=== PATIENT | female | born 1995 | race Caucasian/White ===

== ENCOUNTER 2024-10-29 07:49 | Emergency (ER) | payer MEDICAID, SELFPAY ==
[2024-10-29 07:50] VITALS: BMI 29.9
[2024-10-29 08:02] VITALS: BP 125/82; PULSE 96; RESP 18; TEMP 37.1; O2SAT 100; BMI 30.1
--- NOTE | 2024-10-29 08:10 | XR_ITS ---
Examination: Pelvic ultrasound, transabdominal, complete Technique: Transabdominal ultrasound of the pelvis performed using grayscale imaging Date and time of exam: October 29, 2024 0820 hours INDICATIONS: Pelvic pain beginning 4 weeks ago FINDINGS: Uterus 10.7 cm endometrial stripe 0.7 cm No uterine mass or intrauterine gestation Right ovary 4.3 cm arterial flow Left ovary 7.3 cm arterial flow, 5.4 x 3.7 x 5.8 cm left adnexal primarily solid mass IMPRESSION: Left ovarian solid mass 5.4 x 3.7 x 5.8 cm, differential would include endometrioma, solid left ovarian tumor, less likely ovarian abscess,, ectopic in the appropriate clinical setting, clinical correlation advised, and follow-up accordingly
--- NOTE | 2024-10-29 08:11 | PD.EDABDPN ---
ED Abdominal Pain RME/HPI General Chief Complaint: Abdominal Pain Stated complaint: LLQ ABD PAIN X3 WEEKS; HX OVARIAN CYSTS Time seen by provider: 10/29/24 07:52 Arrival date/time: 10/29/24 07:49 29-year-old female with no known medical history presents to the emergency room with a chief complaint of left lower quadrant abdominal pain x 3 weeks Source: patient Mode of arrival: ambulatory Limitations: no limitations Related Data Home Medications ?Medication ?Instructions ?Recorded ?Confirmed omeprazole 40 mg capsule,delayed 40 mg PO QDAY 03/11/20 03/25/20 release vits no.124-ferrous fum 1 tab PO QDAY 03/11/20 03/25/20 27 mg iron-folic acid 800 mcg tablet ( Vitamin) sertraline 25 mg tablet (Zoloft) 25 mg PO QDAY 03/11/20 03/25/20 Previous Rx's ?Medication ?Instructions ?Recorded hydrocodone 5 mg-acetaminophen 325 1 tab PO BID PRN pain #20 tabs 04/07/20 mg tablet (Milfay) ibuprofen 600 mg tablet 600 mg PO Q8H PRN pain #30 tabs 04/07/20 ondansetron HCl 4 mg tablet 4 mg PO Q6H PRN nausea and 04/11/20 (Zofran) vomiting #30 tabs acetaminophen 500 mg capsule 1,000 mg (2 x 500 mg) PO QID PRN 09/18/20 fever or pain #30 caps azithromycin 250 mg tablet See Rx Instructions PO .COMPLEX #6 09/18/20 tabs Allergies Allergy/AdvReac Type Severity Reaction Status Date / Time meperidine Allergy Severe RASH Verified 10/29/24 07:53 Review of Systems Review of Systems Systems Reviewed: All systems reviewed, normal except as documented Constitutional Constitutional: Reports system reviewed and no additional complaints, except as documented, Denies fatigue, Denies fever(s), Denies headache(s) and Denies weakness Eyes Eyes: Reports system reviewed and no additional complaints, except as documented, Denies blurry vision and Denies change in vision ENT Ears, Nose, Mouth, and Throat: Reports system reviewed and no additional complaints, except as documented, Denies otalgia, Denies headache(s), Denies nasal congestion, Denies throat swelling and Denies vertigo Cardiovascular Cardiovascular: Reports system reviewed and no additional complaints, except as documented, Denies chest pain, Denies dyspnea and Denies dyspnea on exertion Respiratory Respiratory: Reports system reviewed and no additional complaints, except as documented, Denies chest congestion, Denies cough, Denies dyspnea, Denies dyspnea on exertion and Denies wheezing Gastrointestinal Gastrointestinal: Reports system reviewed and no additional complaints, except as documented, Reports abdominal pain, Reports cramping, Denies nausea and Denies vomiting Genitourinary Genitourinary: Reports system reviewed and no additional complaints, except as documented Musculoskeletal Musculoskeletal: Reports system reviewed and no additional complaints, except as documented and Denies back pain Integumentary/Breasts Skin/Breast: Reports system reviewed and no additional complaints, except as documented and Denies wounds Neurologic Neurologic: Reports system reviewed and no additional complaints, except as documented, Denies confusion, Denies headache(s), Denies lack of coordination, Denies vertigo and Denies weakness Psychiatric Psychiatric: Reports system reviewed and no additional complaints, except as documented, Denies anxiety, Denies confusion, Denies depression, Denies paranoia, Denies suicidal ideation and Denies tactile hallucinations Endocrine Endocrine: Reports system reviewed and no additional complaints, except as documented and Denies fatigue Hematologic/Lymphatic Hematologic/Lymphatic: Reports system reviewed and no additional complaints, except as documented and Denies lymphadenopathy Allergic/Immunologic Allergic/Immunologic: Reports system reviewed and no additional complaints, except as documented, Denies throat swelling, Denies urticaria and Denies wheezing Past Medical History Past Medical History NEUROLOGIC: Negative Neurological Disorders or Seizures CARDIAC: Negative Cardiac Disorders or Congestive Heart Failure RESPIRATORY: Negative Chronic Obstructive Pulmonary Disease (COPD) or Asthma GASTROINTESTINAL: Positive Gastrointestinal Disorders and Gastroesophageal Reflux Disease; Negative Hepatitis GENITOURINARY: Negative Genitourinary Disorders or Renal Disease REPRODUCTIVE: Negative Endometriosis, Genital Herpes, Gonorrhea, Pelvic Inflammatory Disease, Previous Pregnancies, Syphilis or Uterine Prolapse MUSCULOSKELETAL: Negative Musculoskeletal Disorders ENDOCRINE: Negative Endocrine Disorders, Diabetes Mellitus Type 1 or Diabetes Mellitus Type 2 HEMATOLOGIC: Negative Blood Disorders or Sickle Cell Disease PSYCHO/SOCIAL: Positive Depression and Anxiety OTHER HISTORY: Negative Hospitalization, Autoimmune Disease, Down Syndrome, Developmental Delay, Shingles, Falls, Blood Transfusions, Blood Transfusion Reaction, Anesthesia Reactions, MRSA, VRSA, Vancomycin-Resistant Enterococci, Human Immunodeficiency Virus (HIV), Chicken Pox, Measles, Mumps, Rubella (Maltese Measles), Pertussis, Clostridium Difficile or Cancer Family History FAMILY HISTORY: Positive Family Psychiatric Problems, Family Respiratory Disorders, Family Cardiac Disorders, Family Cancer and Family Surgery; Negative Family Gastrointestinal Problems or Family Anesthesia Reaction Surgical History SURGICAL: Positive Abdominal Surgery and Section (ovarian cyst removal) Social History SMOKING STATUS: Never smoker SUBSTANCE USE: does not use ED Exam General Limitations: Present no limitations General appearance: Present alert and in no apparent distress Head Head exam: Present atraumatic Eye Eye exam: Present normal appearance, PERRL and EOMI ENT ENT exam: Present normal exam, normal oropharynx and mucous membranes moist Neck Neck exam: Present normal inspection, full ROM and trachea midline Chest Chest inspection: Present normal inspection and symmetric chest wall rise Respiratory Respiratory exam: Present normal lung sounds bilaterally Cardiovascular Cardiovascular exam: Present regular rate, normal rhythm and normal heart sounds Abdominal Exam Abdominal exam: Present soft, tenderness and normal bowel sounds; Absent Nolan's sign or tenderness at McBurney's Point Abdominal tenderness: Present LLQ, suprapubic and moderate; Absent RUQ or RLQ Extremities Exam Extremities exam: Present normal inspection and full ROM Back Exam Back exam: Present normal inspection and full ROM Neurological Exam Neurological exam: Present alert, oriented X3 and CN II-XII intact Psychiatric Psychiatric exam: Present normal affect and normal mood Skin Skin exam: Present warm, dry, intact and normal color Course Quality Measures none Orders Category Date Time Status US pelvic complete Stat Exams 10/29/24 08:10 Completed CBC Stat Lab 10/29/24 08:41 Completed CMP [Comprehensive Metabolic Panel] Stat Lab 10/29/24 08:41 Completed HCG,Qualitative Serum Stat Lab 10/29/24 08:41 Completed UA, C/S IF [Urinalysis, C/S if Indicated] Stat Lab 10/29/24 08:50 Completed Vital Signs Vital signs: Vital Signs Temperature 98.8 F 10/29/24 08:02 Pulse Rate 96 10/29/24 08:02 Respiratory Rate 18 10/29/24 08:02 Blood Pressure 125/82 10/29/24 08:02 Pulse Oximetry (%) 100 10/29/24 08:02 O2 saturation 100% within normal limits Abdominal Pain MDM MDM Narrative MDM Narrative:: 29-year-old female with no known medical history presents to the emergency room with a chief complaint of left lower quadrant abdominal pain x 3 weeks Patient is hemodynamically stable. She is afebrile not tachycardic not tachypneic Physical examination shows tenderness with palpation to the left lower quadrant. The patient states it is a 7 out of 10 in severity. An ultrasound of the pelvic area was completed and found a 5.4 x 3.7 x 5.8 cm solid mass in the left ovarian area. There is arterial flow in the patient's hCG was negative. The patient did not have a white count The CLINICAL STAFF ANESTHESIOLOGIST on-call Dr. Cui was consulted and the patient can be followed up as an outpatient with her CLINICAL STAFF ANESTHESIOLOGIST. The information to Dr Salas the CLINICAL STAFF ANESTHESIOLOGIST here [facility] was given so she can call and make an appointment if she cannot get an appointment with her own CLINICAL STAFF ANESTHESIOLOGIST. Patient was discharged and educated to follow-up with primary care provider in the next 24 to 48 hours and return to the emergency room for any evidence of worsening signs or symptoms Patient data External records reviewed:: [facility] previous records Clinical information provided by:: patient Social determinants that could affect healthcare access:: none Patient has the following chronic illnesses:: No chronic illness How is presenting disease/condition affected by chronic disease/condition?: no chronic disease Evaluation data The following diagnostics were reviewed and interpreted by me:: lab results and radiology exam(s) Lab and/or radiology exams considered but not ordered:: Labs and radiology exams considered and ordered Interpretation Summary: Pelvic ultrasound-FINDINGS: Uterus 10.7 cm endometrial stripe 0.7 cm No uterine mass or intrauterine gestation Right ovary 4.3 cm arterial flow Left ovary 7.3 cm arterial flow, 5.4 x 3.7 x 5.8 cm left adnexal primarily solid mass IMPRESSION: Left ovarian solid mass 5.4 x 3.7 x 5.8 cm, differential would include endometrioma, solid left ovarian tumor, less likely ovarian abscess,, ectopic in the appropriate clinical setting, clinical correlation advised, and follow-up accordingly Medications / Prescriptions Medications or Prescriptions considered but not ordered:: No medication given Medication administrations:: No medication given Consultations Consultation(s) initiated? (list below): Yes Consultation #1 (Physician, Specialty, Details): Dr. Cui CLINICAL STAFF ANESTHESIOLOGIST on-call Time: 10:30 Diagnosis Differential diagnosis abdominal pain: abdominal pain, constipation, gastroenteritis and other (Ovarian mass) Most likely diagnosis given after review of the tests above:: Ovarian mass Admission Indicated Admission indicated?: not indicated Admission Request Was there a request for admission?: No Disposition Plan Disposition Plan: Discharge Discharge Attestation Discharge Attestation: The patient and all family members were given an opportunity to ask questions and understood the discharge instructions. Discharge instructions specifically effects, indications for sooner follow up or return to the emergency department, and the expected course of current diagnosis. Patient condition: Stable Discharge Plan Plan Patient Disposition: HOME (Self Care) Discharge Disposition comment: Stable Prescriptions/Referrals Prescriptions/Med Rec: No Action omeprazole [Prilosec] 40 mg Capsule,Delayed Release(Dr/Ec) 40 mg PO QDAY sertraline [Zoloft] 25 mg Tablet 25 mg PO QDAY Vitamin 27 mg iron- 800 mcg Tablet 1 tab PO QDAY ibuprofen 600 mg tablet 600 mg PO Q8H PRN (Reason: pain) Qty: 30 0RF hydrocodone-acetaminophen [Milfay] 5-325 mg tablet 1 tab PO BID MDD 15 PRN (Reason: pain) Qty: 20 0RF ondansetron HCl [Zofran] 4 mg tablet 4 mg PO Q6H PRN (Reason: nausea and vomiting) Qty: 30 0RF azithromycin 250 mg tablet See Rx Instructions .ROUTE .COMPLEX Qty: 6 0RF Rx Instructions: take 500 mg today (day 1), then 250 mg for 4 days (days 2-5) acetaminophen 500 mg capsule 1,000 mg PO QID PRN (Reason: fever or pain) Qty: 30 0RF Referrals: [facility]Fely Tan MD [Physician] - 11/01/24 Jose Singh MD [Primary Care Provider] - In 1 week Problem List Clinical Impression: Mass, ovarian Patient/Caregiver Discharge Instructions Additional Instructions: Please follow-up with your CLINICAL STAFF ANESTHESIOLOGIST in the next 24 to 48 hours You have a large mass in your left pelvic area. You will need to see an CLINICAL STAFF ANESTHESIOLOGIST for further management and possibly removal of this mass. If you do not have an CLINICAL STAFF ANESTHESIOLOGIST please follow-up with Dr Salas. Call our office at [phone] to schedule an appointment. For any evidence of worsening signs or symptoms return to the emergency room immediately Print Language: Marshallese Stand Alone Forms: Annette Award Info., Work/School Release, Patient Portal Info Letter PA/IVORY CARVER Supervising Physician PA/IVORY CARVER Supervising Physician: Dr. Brewster
[2024-10-29 08:51] LABS: Basophils % (Auto) 1 % (0-2.5); Eosinophils # (Auto) 0.1 Thou/mm3 (0.0-0.5); Eosinophils % (Auto) 2 % (0-10); Hematocrit 38.5 % (36.0-46.0); Hemoglobin 14.2 g/dL (12.0-16.0); Immature Granulocytes % (Auto) 1 % (0-0); Immature Granulocytes Auto 0.04 Thou/mm3 (0.00-0.00); Lymphocytes # (Auto) 1.8 Thou/mm3 (1.0-4.8); Lymphocytes % (Auto) 29 % (10-50); Mean Corpuscular HGB Conc 36.9 g/dl (31.0-37.0); Mean Corpuscular Hemoglobin 30.3 pg (25.0-35.0); Mean Corpuscular Volume 82 fL (80-100); Monocytes # (Auto) 0.4 Thou/mm3 (0.0-0.8); Monocytes % (Auto) 6 % (0-12); Neutrophils % (Auto) 63 % (37-80); Nucleated Red Blood Cell % 0 /100 WBC (0); Platelet Count 236 Thou/mm3 (140-440); RDW Standard Deviation 37.2 fL (36.4-46.3); Red Blood Count 4.68 Miln/mm3 (4.00-5.20); White Blood Count 6.4 Thou/mm3 (3.6-11.0)
[2024-10-29 08:56] LABS: Collection Type, Urine Clean Catch
[2024-10-29 09:11] LABS: Alanine Aminotransferase 15 U/L (10-49); Albumin, Serum 4.5 gm/dL (3.5-5.0); Albumin/Globulin Ratio 1.9 (1.2-2.2); Alkaline Phosphatase 62 U/L (46-116); Anion Gap 9 (7-16); Aspartate Amino Transferase 20 U/L (0-34); BUN/Creatinine Ratio 8 Ratio (12-20); Bilirubin,Total 0.5 mg/dL (0.3-1.2); Blood Urea Nitrogen 7 mg/dL (9-23); Carbon Dioxide 25.7 mMol/L (20.0-31.0); Chloride 106 mMol/L (98-107); Creatinine (Component) 0.9 mg/dL (0.6-1.3); Estimated Creatinine Clearance 95.9 mL/min (>60); Globulin 2.4 gm/dL (2.3-3.5); Glucose 97 mg/dL (74-106); Osmolality,Calculated 279 (275-295); Potassium 4.1 mMol/L (3.4-5.1); Sodium 141 mMol/L (136-145); Total Protein 6.9 gm/dL (5.7-8.2); eGFR > 60 See Note
[2024-10-29 09:16] LABS: Bacteria,Urine Rare; Bilirubin,Urine Negative (Negative); Blood,Urine Negative (Negative); Clarity,Urine Clear (Clear/Hazy); Color,Urine Yellow (Lt Yel-Yel); Culture Indicated,Urine Not Indicated; Glucose, Urine Negative (Negative); Ketones,Urine Negative (Negative); Leukocyte Esterase,Urine Negative (Negative); Nitrite,Urine Negative (Negative); Protein,Urine Trace (Neg - Trace); RBC,Urine 3 /hpf (0-3); Specific Gravity,Urine 1.025 (1.001-1.035); Squamous Epithelial Cell,Urine 19 /hpf (0-5); Urobilinogen,Urine Negative mg/dL (0.0-1.0); WBC,Urine 3 /hpf (0-5)
[2024-10-29 09:24] LABS: HCG,Qualitative Serum Negative
[2024-10-29 10:53] VITALS: BP 122/77; PULSE 78
== END 2024-10-29 10:53 | disposition home or self-care (01) ==
PROVIDERS: Nurse Practitioner Family; Emergency Provider Family Medicine; PCP Family Medicine
DX: N83.8 Other noninflammatory disorders of ovary, fallopian tube and broad ligament (principal)
CPT/HCPCS: 36415; 76856; 80053; 81001; 84703; 85025; 99284

== ENCOUNTER 2025-02-17 14:08 | Emergency (ER) | payer OTHER, SELFPAY ==
[2025-02-17 14:10] VITALS: BMI 31.6
[2025-02-17 14:21] VITALS: BP 118/82; PULSE 98; RESP 16; TEMP 37.6; O2SAT 99
--- NOTE | 2025-02-17 14:28 | XR_ITS ---
Examination: Pelvic ultrasound, transabdominal, complete Technique: Transabdominal ultrasound of the pelvis performed using grayscale imaging Date and time of exam: February 17, 2025 1446 hours INDICATIONS: Pelvic pain radiating down the left leg today FINDINGS: Uterus 9.2 cm endometrial stripe 0.57 cm No uterine mass or intrauterine gestation Right ovary 3.8 cm arterial flow 2.3 x 1.7 x 1.9 cm solid mass right ovary Left ovary 3.9 cm arterial flow small follicles IMPRESSION: 2.3 x 1.7 x 1.9 cm solid right ovarian mass,, differential would include endometrioma, ovarian tumor, recommend ELECTIVE MRI pelvis follow-up pre and postcontrast
--- NOTE | 2025-02-17 14:29 | PD.EDRME ---
Rapid Medical Screening Exam RME Arrival date/time: 02/17/25 14:08 29-year-old female presents to the emergency department for complaints of pelvic pain patient ports that she has a pelvic tumor and she is going to have surgery on the of this month in [place] Chief Complaint: Abdominal Pain Time Seen by Provider: 02/17/25 14:28 Vital signs: Vital Signs Temperature 99.6 F 02/17/25 14:21 Pulse Rate 98 02/17/25 14:21 Respiratory Rate 16 02/17/25 14:21 Blood Pressure 118/82 02/17/25 14:21 Pulse Oximetry (%) 99 02/17/25 14:21 Oxygen Delivery Method Room Air 02/17/25 14:21
[2025-02-17 14:48] LABS: Basophils # (Auto) 0.1 Thou/mm3 (0.0-0.2); Basophils % (Auto) 1 % (0-2.5); Eosinophils # (Auto) 0.1 Thou/mm3 (0.0-0.5); Eosinophils % (Auto) 1 % (0-10); Hematocrit 40.1 % (36.0-46.0); Hemoglobin 14.3 g/dL (12.0-16.0); Immature Granulocytes Auto 0.03 Thou/mm3 (0.00-0.00); Lymphocytes # (Auto) 2.4 Thou/mm3 (1.0-4.8); Lymphocytes % (Auto) 33 % (10-50); Mean Corpuscular HGB Conc 35.7 g/dl (31.0-37.0); Mean Corpuscular Hemoglobin 30.0 pg (25.0-35.0); Mean Corpuscular Volume 84 fL (80-100); Monocytes # (Auto) 0.5 Thou/mm3 (0.0-0.8); Monocytes % (Auto) 6 % (0-12); Neutrophils # (Auto) 4.3 Thou/mm3 (1.8-7.7); Neutrophils % (Auto) 59 % (37-80); Nucleated Red Blood Cell # 0.00 Thou/mm3 (0.00-0.00); Nucleated Red Blood Cell % 0 /100 WBC (0); Platelet Count 243 Thou/mm3 (140-440); RDW Standard Deviation 36.5 fL (36.4-46.3); Red Blood Count 4.76 Miln/mm3 (4.00-5.20); White Blood Count 7.4 Thou/mm3 (3.6-11.0)
--- NOTE | 2025-02-17 15:08 | XR_ITS ---
Examination: Transvaginal ultrasound of the pelvis, complete Technique: Transvaginal sonographic images pelvis performed using bautista scale imaging Exam date and time: February 17, 2025 1506 hours INDICATIONS: Pelvic pain radiating down the left leg today FINDINGS: Uterus 10.5 cm endometrial stripe 1.0 cm No uterine mass or intrauterine gestation Right ovary 3.7 cm arterial flow, 19 x 19 x 15 mm solid nonvascular mass Left ovary 3.6 cm arterial flow small follicles IMPRESSION: Right ovarian solid mass 19 x 19 x 15 mm, differential would include endometrioma, right ovarian tumor Recommend ELECTIVE MRI pelvis follow-up pre and postcontrast.
[2025-02-17 15:14] LABS: Alanine Aminotransferase 17 U/L (10-49); Albumin, Serum 5.0 gm/dL (3.5-5.0); Albumin/Globulin Ratio 2.1 (1.2-2.2); Alkaline Phosphatase 80 U/L (46-116); Anion Gap 10 (7-16); Aspartate Amino Transferase 22 U/L (0-34); BUN/Creatinine Ratio 16 Ratio (12-20); Bilirubin,Total 0.6 mg/dL (0.3-1.2); Blood Urea Nitrogen 14 mg/dL (9-23); Calcium 10.6 mg/dL (8.3-10.6); Calcium (Corrected) 10.6 mg/dL (8.5-10.1); Carbon Dioxide 26.2 mMol/L (20.0-31.0); Chloride 104 mMol/L (98-107); Creatinine (Component) 0.9 mg/dL (0.6-1.3); Estimated Creatinine Clearance 98.2 mL/min (>60); Globulin 2.4 gm/dL (2.3-3.5); Glucose 83 mg/dL (74-106); Osmolality,Calculated 278 (275-295); Potassium 4.3 mMol/L (3.4-5.1); Sodium 140 mMol/L (136-145); Total Protein 7.4 gm/dL (5.7-8.2); eGFR > 60 See Note
--- NOTE | 2025-02-17 16:05 | PD.EDABDPN ---
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 BULLOCK MAIN ED EVALUATION: 29 year old female with history of left solid ovarian mass with scheduled tumor resection for 03/04/[address] [facility] presents to the ED for evaluation of left-sided pelvic pain and left lower back pain today. Reportedly has had the abdominal pain intermittently since diagnosed with ovarian tumor ~ 1 year ago. However, noted a sharp shooting pain that begins in her lower back and radiates around to the left groin x yesterday morning. Reports she has taken Toradol at home with minimal relief. No other associated symptoms or complaints reported. Related Data Home Medications ?Medication ?Instructions ?Recorded ?Confirmed omeprazole 40 mg capsule,delayed 40 mg PO QDAY 03/11/20 03/25/20 release vits no.124-ferrous fum 1 tab PO QDAY 03/11/20 03/25/20 27 mg iron-folic acid 800 mcg tablet ( Vitamin) sertraline 25 mg tablet (Zoloft) 25 mg PO QDAY 03/11/20 03/25/20 Previous Rx's ?Medication ?Instructions ?Recorded hydrocodone 5 mg-acetaminophen 325 1 tab PO BID PRN pain #20 tabs 20 mg tablet (Dyer) ibuprofen 600 mg tablet 600 mg PO Q8H PRN pain #30 tabs 04/07/20 ondansetron HCl 4 mg tablet 4 mg PO Q6H PRN nausea and 04/11/20 (Zofran) vomiting #30 tabs acetaminophen 500 mg capsule 1,000 mg (2 x 500 mg) PO QID PRN 09/18/20 fever or pain #30 caps azithromycin 250 mg tablet See Rx Instructions PO .COMPLEX #6 09/18/20 tabs Allergies Allergy/AdvReac Type Severity Reaction Status Date / Time meperidine Allergy Severe RASH Verified 02/17/25 14:09 Review of Systems Review of Systems Systems Reviewed: All systems reviewed, normal except as documented Past Medical History Past Medical History GASTROINTESTINAL: Positive Gastrointestinal Disorders and Gastroesophageal Reflux Disease PSYCHO/SOCIAL: Positive Depression and Anxiety Family History FAMILY HISTORY: Positive Family Psychiatric Problems, Family Respiratory Disorders, Family Cardiac Disorders, Family Cancer and Family Surgery Surgical History SURGICAL: Positive Abdominal Surgery and Section (ovarian cyst removal) Social History SMOKING STATUS: Never smoker SUBSTANCE USE: does not use ED Exam General Limitations: Present no limitations General appearance: Present alert and in no apparent distress Head Head exam: Present atraumatic, normocephalic and normal inspection Eye Eye exam: Present normal appearance, PERRL and EOMI ENT ENT exam: Present normal exam, normal oropharynx and mucous membranes moist Neck Neck exam: Present normal inspection, full ROM and trachea midline Chest Chest inspection: Present normal inspection and symmetric chest wall rise Respiratory Respiratory exam: Present normal lung sounds bilaterally Cardiovascular Cardiovascular exam: Present regular rate, normal rhythm and normal heart sounds Abdominal Exam Abdominal exam: Present soft and normal bowel sounds Extremities Exam Extremities exam: Present normal inspection and full ROM Back Exam Back exam: Present normal inspection and full ROM Neurological Exam Neurological exam: Present alert, oriented X3 and CN II-XII intact Psychiatric Psychiatric exam: Present normal affect and normal mood Skin Skin exam: Present warm, dry, intact and normal color Course Quality Measures none Orders Category Date Time Status US pelvic complete Stat Exams 02/17/25 14:28 Completed US transvaginal Stat Exams 02/17/25 15:08 Completed CBC Stat Lab 02/17/25 14:40 Completed Comprehensive Metabolic Panel Stat Lab 02/17/25 14:40 Completed Vital Signs Vital signs: Vital Signs Temperature 99.6 F 02/17/25 14:21 Pulse Rate 98 02/17/25 14:21 Respiratory Rate 16 02/17/25 14:21 Blood Pressure 118/82 02/17/25 14:21 Pulse Oximetry (%) 99 02/17/25 14:21 Oxygen Delivery Method Room Air 02/17/25 14:21 Pulse ox is 99% on room air which is adequate. Abdominal Pain MDM MDM Narrative MDM Narrative:: Catalina Gustafson am scribing for and in the presence of Dr. Bullock. 29 year old female with history of left solid ovarian mass with scheduled tumor resection for 03/04/[address] [facility] presents to the ED for evaluation of left-sided pelvic pain and left lower back pain today. Labs and imaging were performed today showing a solid right ovarian mass. Patients pain today is mot likely an L2-L3 ilioinguinal nerve pain radiating to pelvis and groin. Patient reports she had an ovarian tumor resection surgery scheduled on 03/04/2025. Patient data External records reviewed:: [facility] previous records (I reviewed ED visit on 10/29/2024 ) Clinical information provided by:: patient Social determinants that could affect healthcare access:: none Patient has the following chronic illnesses:: Ovarian tumor How is presenting disease/condition affected by chronic disease/condition?: exacerbated by Evaluation data The following diagnostics were reviewed and interpreted by me:: lab results and radiology exam(s) Lab and/or radiology exams considered but not ordered:: None Interpretation Summary: Ordering Physician: Jeremy ZEPEDA),Addison RON Date of Service: 02/17/25 Procedure(s): US pelvic complete Accession Number(s): [id number] cc: Jeremy ZEPEDA),Addison RON; Marc Lara MD; NO PRIMARY/FAMILY,PHYSICIAN~ Examination: Pelvic ultrasound, transabdominal, complete Technique: Transabdominal ultrasound of the pelvis performed using grayscale imaging Date and time of exam: February 17, 2025 1446 hours INDICATIONS: Pelvic pain radiating down the left leg today FINDINGS: Uterus 9.2 cm endometrial stripe 0.57 cm No uterine mass or intrauterine gestation Right ovary 3.8 cm arterial flow 2.3 x 1.7 x 1.9 cm solid mass right ovary Left ovary 3.9 cm arterial flow small follicles IMPRESSION: 2.3 x 1.7 x 1.9 cm solid right ovarian mass,, differential would include endometrioma, ovarian tumor, recommend ELECTIVE MRI pelvis follow-up pre and postcontrast Dictated By: Marc Lara MD Signed By: <Electronically signed by Marc Lara MD in OV> 02/17/25 1533 Ordering Physician: Jeremy ZEPEDA)Addison NP Date of Service: 02/17/25 Procedure(s): US transvaginal Accession Number(s): [id number] cc: Jeremy ZEPEDA),Addison RON; Marc Lara MD; NO PRIMARY/FAMILY,PHYSICIAN~ Examination: Transvaginal ultrasound of the pelvis, complete Technique: Transvaginal sonographic images pelvis performed using bautista scale imaging Exam date and time: February 17, 2025 1506 hours INDICATIONS: Pelvic pain radiating down the left leg today FINDINGS: Uterus 10.5 cm endometrial stripe 1.0 cm No uterine mass or intrauterine gestation Right ovary 3.7 cm arterial flow, 19 x 19 x 15 mm solid nonvascular mass Left ovary 3.6 cm arterial flow small follicles IMPRESSION: Right ovarian solid mass 19 x 19 x 15 mm, differential would include endometrioma, right ovarian tumor Recommend ELECTIVE MRI pelvis follow-up pre and postcontrast. Dictated By: Marc Lara MD Signed By: <Electronically signed by Marc Lara MD in OV> 02/17/25 1538 Medications / Prescriptions Medications or Prescriptions considered but not ordered:: None Medication administrations:: None Consultations Consultation(s) initiated? (list below): No Diagnosis Differential diagnosis abdominal pain: abdominal pain, calculus of kidney and other (musculoskeletal pain ) Most likely diagnosis given after review of the tests above:: Radicular pain Admission Indicated Admission indicated?: not indicated Admission Request Was there a request for admission?: No Disposition Plan Disposition Plan: Discharge Discharge Attestation Discharge Attestation: The patient and all family members were given an opportunity to ask questions and understood the discharge instructions. Discharge instructions specifically effects, indications for sooner follow up or return to the emergency department, and the expected course of current diagnosis. Patient condition: Stable Discharge Plan Plan Patient Disposition: HOME (Self Care) Prescriptions/Referrals Prescriptions/Med Rec: No Action omeprazole [Prilosec] 40 mg Capsule,Delayed Release(Dr/Ec) 40 mg PO QDAY sertraline [Zoloft] 25 mg Tablet 25 mg PO QDAY Vitamin 27 mg iron- 800 mcg Tablet 1 tab PO QDAY ibuprofen 600 mg tablet 600 mg PO Q8H PRN (Reason: pain) Qty: 30 0RF hydrocodone-acetaminophen [Dyer] 5-325 mg tablet 1 tab PO BID MDD 15 PRN (Reason: pain) Qty: 20 0RF ondansetron HCl [Zofran] 4 mg tablet 4 mg PO Q6H PRN (Reason: nausea and vomiting) Qty: 30 0RF azithromycin 250 mg tablet See Rx Instructions .ROUTE .COMPLEX Qty: 6 0RF Rx Instructions: take 500 mg today (day 1), then 250 mg for 4 days (days 2-5) acetaminophen 500 mg capsule 1,000 mg PO QID PRN (Reason: fever or pain) Qty: 30 0RF Referrals: No Primary/Family,Physician [Primary Care Provider] - In 1 week Problem List Clinical Impression: Radicular low back pain Patient/Caregiver Discharge Instructions Additional Instructions: Follow-up with your primary care doctor in 3 to 5 days for recheck. You can return to the emergency department sooner if symptoms worsen or if you notice any new, concerning issues. Continue your usual medications. Print Language: Lao Stand Alone Forms: Annette Award Info., Patient Portal Info Letter
== END 2025-02-17 16:29 | disposition home or self-care (01) ==
PROVIDERS: Nurse Practitioner Primary Care; Emergency Provider Family Medicine
DX: M54.50 Low back pain, unspecified (principal)
CPT/HCPCS: 36415; 76830; 76856; 80053; 81001; 81025; 85025; 99283

== ENCOUNTER 2025-03-25 21:18 | Emergency (ER) | payer OTHER, SELFPAY ==
[2025-03-25 21:20] VITALS: BMI 31.6
[2025-03-25 21:44] VITALS: BP 144/89; PULSE 120; RESP 18; TEMP 37.3; O2SAT 99
--- NOTE | 2025-03-25 21:46 | PD.EDABDPN ---
ED Abdominal Pain RME/HPI General Chief Complaint: Abdominal Pain Stated complaint: ABD PAIN RADIATING TO BACK, PELVIC PRESSURE Time seen by provider: 03/25/25 21:50 Arrival date/time: 03/25/25 21:18 RME / HPI RME / HPI narrative: See [facility] for Dr. Pearson's HPI Documentation. Related Data Home Medications ?Medication ?Instructions ?Recorded ?Confirmed omeprazole 40 mg capsule,delayed 40 mg PO QDAY 03/11/20 03/25/20 release vits no.124-ferrous fum 1 tab PO QDAY 03/11/20 03/25/20 27 mg iron-folic acid 800 mcg tablet ( Vitamin) sertraline 25 mg tablet (Zoloft) 25 mg PO QDAY 03/11/20 03/25/20 Previous Rx's ?Medication ?Instructions ?Recorded hydrocodone 5 mg-acetaminophen 325 1 tab PO BID PRN pain #20 tabs 04/07/20 mg tablet (Surprise) ibuprofen 600 mg tablet 600 mg PO Q8H PRN pain #30 tabs 04/07/20 ondansetron HCl 4 mg tablet 4 mg PO Q6H PRN nausea and 04/11/20 (Zofran) vomiting #30 tabs acetaminophen 500 mg capsule 1,000 mg (2 x 500 mg) PO QID PRN 09/18/20 fever or pain #30 caps azithromycin 250 mg tablet See Rx Instructions PO .COMPLEX #6 09/18/20 tabs acetaminophen 300 mg-codeine 30 mg 2 tab PO Q8H PRN pain #20 tabs 03/26/25 tablet ondansetron 4 mg disintegrating 4 mg PO TID PRN nausea and 03/26/25 tablet vomiting 30 days #10 tabs Allergies Allergy/AdvReac Type Severity Reaction Status Date / Time meperidine Allergy Severe RASH Verified 03/25/25 21:19 Review of Systems Review of Systems Systems Reviewed: All systems reviewed, normal except as documented Past Medical History Past Medical History GASTROINTESTINAL: Positive Gastroesophageal Reflux Disease PSYCHO/SOCIAL: Positive Depression and Anxiety Family History FAMILY HISTORY: Positive Family Psychiatric Problems, Family Respiratory Disorders, Family Cardiac Disorders, Family Cancer and Family Surgery Surgical History SURGICAL: Positive Abdominal Surgery and Section (ovarian cyst removal) ED Exam Narrative Physical exam: See MDM for Dr. Pearson's Physical Exam Documentation. Course Quality Measures none Orders Category Date Time Status CT Screening NOW Care 03/25/25 21:51 Completed Saline [Insert IV] NOW Care 03/25/25 21:[address] abdomen pelvis w con Stat Exams 03/25/25 21:51 Completed Amylase Stat Lab 03/25/25 22:05 Completed Bilirubin,Direct Stat Lab 03/25/25 22:05 Completed Blood Culture (Lab) Stat Lab 03/25/25 22:05 Received CBC Stat Lab 03/25/25 22:05 Completed CMP [Comprehensive Metabolic Panel] Stat Lab 03/25/25 22:05 Completed CRP [C-Reactive Protein] Stat Lab 03/25/25 22:05 Completed ESR [Sed Rate (ESR)] Stat Lab 03/25/25 22:05 Completed HCG,Qualitative Serum Stat Lab 03/25/25 22:05 Completed Lactate (Lactic Acid) Stat Lab 03/25/25 22:05 Completed Lipase Stat Lab 03/25/25 22:05 Completed Magnesium Stat Lab 03/25/25 22:05 Completed Procalcitonin Stat Lab 03/25/25 22:05 Completed UA, C/S IF [Urinalysis, C/S if Indicated] Stat Lab 03/26/25 00:22 Completed Ketorolac Inj [Toradol Inj] Med 03/25/25 21:50 Discontinued 30 mg IVP X1 ONE Morphine* Inj Med 03/25/25 21:50 Discontinued 6 mg IV X1 ONE Ondansetron Inj [Zofran Inj] Med 03/25/25 21:50 Discontinued 4 mg IVP X1 ONE Sodium Chloride 0.9% 1000 ml [Ns] 1,000 ml Med 03/25/25 21:50 Discontinued IV 999 mls/hr Vital Signs Vital signs: Vital Signs Temperature 99.1 F 03/25/25 21:44 Pulse Rate 120 H 03/25/25 21:44 Respiratory Rate 18 03/25/25 21:44 Blood Pressure 144/89 H 03/25/25 21:44 Pulse Oximetry (%) 99 03/25/25 21:44 Oxygen Delivery Method Room Air 03/25/25 21:[address] [facility] MDM Narrative MDM Narrative:: This section includes all my notes and documentations, including HPI, PE, and ED course. Agustin Pearson MD HPI: 29 y/o female here with severe abdominal pain. About 3 weeks ago, she had laparoscopy surgery in [place]. Which included removal of left ovary and fallopian tube and right ovarian cyst and removal of multiple adhesions. She has worsening pain in the past few days. Ran out of pain medications at home. Slight nausea, no vomiting. No fever or chills. Had normal bowel movement earlier today. Passing gas. No other complaints. ROS: All negative except as documented in HPI. Physical Exam: General: Alert and oriented. No acute distress when remaining still. Eyes: Conjunctivae and lids clear. ENT: No nasal congestion. Neck: Supple. Heart: RRR. Lungs: No respiratory distress. Good air movement. No rhonchi, wheezing, rales. Abdomen: Soft with diffuse tenderness, difficult to localize. Normal bowel sounds. No distension. No rebound or guarding. Back: No CVA tenderness. Skin: Warm and dry. Neuro: Alert and oriented X 3. I reviewed all diagnostic test results: My review of the Abdomen/Pelvis CT report is NAD. Blood tests and urine tests were unremarkable At this point, diagnoses include: Pain following surgery or procedure Treatment here included: IVF Toradol 30 mg IV Morphine 6 mg IV Zofran 4 mg IV Significant improvement noted. Recommended outpatient care. Based on my best medical judgment, made decision no further evaluation or treatment indicated at this time. Patient understands and agrees to the discharge instructions customized and printed, see below. Discharge Instructions from Dr. Pearson printed for you: 1. After extensive evaluation, there is no surgical complication. 2. Your pain is due to significant abdominal surgery. 3. Tylenol with codeine for severe pain. 4. For good hydration, increase oral fluid and maintain clear urine. If dark or yellow, increase oral fluid. Zofran for nausea/vomiting. 5. See a private doctor on 03/28/2025 for recheck. Ask to review all test results and official radiology reports, to make sure you receive all necessary follow-ups and monitoring. 6. Seek immediate medical care with worsening or with any concerns. Agustin Pearson MD Patient data External records reviewed:: [facility] previous records (Reviewed prior ED records from 02/17/25. Patient was seen for Radicular low back pain.) Clinical information provided by:: patient Social determinants that could affect healthcare access:: mental health (Depression, Anxiety) Patient has the following chronic illnesses:: GERD, Anxiety, Depression How is presenting disease/condition affected by chronic disease/condition?: exacerbated by Evaluation data The following diagnostics were reviewed and interpreted by me:: lab results and radiology exam(s) Lab and/or radiology exams considered but not ordered:: None Interpretation Summary: I reviewed all diagnostic test results: My review of the Abdomen/Pelvis CT report is NAD. Blood tests and urine tests were unremarkable Medications / Prescriptions Medications or Prescriptions considered but not ordered:: None Medication administrations:: Medication Administration History Discontinued Medications Sodium Chloride (Ns) 1,000 mls @ 999 mls/hr IV .Q1H1M ONE Stop: 03/25/25 22:50 Last Infusion: 03/25/25 23:28 Dose: Infused Documented By: Admin: 03/25/25 22:18 Dose: 999 mls/hr Documented By: KINSEY Ketorolac Tromethamine (Ketorolac Inj 30 Mg/Ml Vial) 30 mg IVP X1 ONE Stop: 03/25/25 21:51 Last Admin: 03/25/25 22:17 Dose: 30 mg Documented By: KINSEY Morphine Sulfate (Morphine Sulf Inj 4 Mg/Ml Vial) 6 mg IV X1 ONE Stop: 03/25/25 21:51 Last Admin: 03/25/25 22:19 Dose: 6 mg Documented By: KINSEY Ondansetron HCl (Ondansetron Inj 2 Mg/Ml Inj 2 Ml) 4 mg IVP X1 ONE; Protocol Stop: 03/25/25 21:51 Last Admin: 03/25/25 22:15 Dose: 4 mg Documented By: KINSEY IVF Toradol 30 mg IV Morphine 6 mg IV Zofran 4 mg IV Consultations Consultation(s) initiated? (list below): No Diagnosis Differential diagnosis abdominal pain: abdominal pain, acute appendicitis, calculus of kidney, constipation, diverticulitis, endometriosis, pancreatitis and small bowel obstruction Most likely diagnosis given after review of the tests above:: Pain following surgery or procedure Admission Indicated Admission indicated?: not indicated Explain why admission is indicated or not indicated:: With significant improvement and no condition needing emergent intervention, there was no indication for admission. Admission Request Was there a request for admission?: No Disposition Plan Disposition Plan: Discharge Discharge Attestation Discharge Attestation: The patient and all family members were given an opportunity to ask questions and understood the discharge instructions. Discharge instructions specifically effects, indications for sooner follow up or return to the emergency department, and the expected course of current diagnosis. Patient condition: Stable Discharge Plan Plan Patient Disposition: HOME (Self Care) Prescriptions/Referrals Prescriptions/Med Rec: New acetaminophen-codeine 300-30 mg tablet 2 tab PO Q8H MDD 6 PRN (Reason: pain) Qty: 20 0RF ondansetron 4 mg tablet,disintegrating 4 mg PO TID PRN (Reason: nausea and vomiting) 30 Days Qty: 10 0RF No Action omeprazole [Prilosec] 40 mg Capsule,Delayed Release(Dr/Ec) 40 mg PO QDAY sertraline [Zoloft] 25 mg Tablet 25 mg PO QDAY Vitamin 27 mg iron- 800 mcg Tablet 1 tab PO QDAY ibuprofen 600 mg tablet 600 mg PO Q8H PRN (Reason: pain) Qty: 30 0RF hydrocodone-acetaminophen [Surprise] 5-325 mg tablet 1 tab PO BID MDD 15 PRN (Reason: pain) Qty: 20 0RF ondansetron HCl [Zofran] 4 mg tablet 4 mg PO Q6H PRN (Reason: nausea and vomiting) Qty: 30 0RF azithromycin 250 mg tablet See Rx Instructions .ROUTE .COMPLEX Qty: 6 0RF Rx Instructions: take 500 mg today (day 1), then 250 mg for 4 days (days 2-5) acetaminophen 500 mg capsule 1,000 mg PO QID PRN (Reason: fever or pain) Qty: 30 0RF Referrals: No Primary/Family,Physician [Primary Care Provider] - In 1 week Problem List Clinical Impression: Pain following surgery or procedure Patient/Caregiver Discharge Instructions Discharge Activity: activity as tolerated Education Materials: ED Abdominal Pain Unknown Cause ... Additional Instructions: Discharge Instructions from Dr. Pearson printed for you: 1. After extensive evaluation, there is no surgical complication. 2. Your pain is due to significant abdominal surgery. 3. Tylenol with codeine for severe pain. 4. For good hydration, increase oral fluid and maintain clear urine. If dark or yellow, increase oral fluid. Zofran for nausea/vomiting. 5. See a private doctor on 03/28/2025 for recheck. Ask to review all test results and official radiology reports, to make sure you receive all necessary follow-ups and monitoring. 6. Seek immediate medical care with worsening or with any concerns. Print Language: Grenadian Stand Alone Forms: Annette Award Info., Patient Portal Info Letter
--- NOTE | 2025-03-25 21:51 | XR_ITS ---
Examination: CT abdomen with intravenous contrast CT pelvis with intravenous contrast 2-D coronal reconstructions 2-D sagittal reconstructions Date and time of exam: March, 11:40 p.m., comparison April 11, 2020 INDICATIONS: Abdominal pain after pelvic surgery 3 weeks ago. CTDI: vol (mGy) 11 DLP: (mGycm) 619 Technique: Multiple axial sections of the abdomen and pelvis have been obtained. 64 slice high-resolution scanner used. 3 mm axial sections have been obtained, post intravenous injection 60 cc Isovue 370 2-D sagittal, coronal reconstructions obtained. Low dose protocols were performed. One or more of the following dose reduction techniques were used; automated exposure control, adjustment of the mA and/or KV according to patient size, use of iterative reconstruction technique. Findings: No focal liver or splenic lesions No gallstones No pancreatic or adrenal mass No renal or ureteral calculi, no hydronephrosis Fluid distended small bowel loops in the upper abdomen, for instance axial image 104 Absent appendix No diverticulitis 5.2 cm thick walled right pelvic cyst with mild free fluid in the pelvis Anteverted uterus with mildly enlarged fundus 8 mm right paracentral disc at the L4-L5 level, axial image 134 sagittal image 120 IMPRESSION: Fluid distended small bowel loops in the upper abdomen, if early small bowel obstruction is a clinical consideration, recommend Gastrografin small bowel series follow-up 5.2 cm thick walled pelvic cystic mass in the right pelvis, recommend pelvic sonography follow-up L4-L5 large soft tissue right paracentral disc bulge
[2025-03-25 22:15] LABS: Lactate (Lactic Acid) 1.3 mMol/L (0.4-2.0)
[2025-03-25] MEDS: ONDANSETRON INJ 2 MG/ML INJ 2 ML 4 MG IVP (22:15)
[2025-03-25] MEDS: KETOROLAC INJ 30 MG/ML VIAL IVP (22:17)
[2025-03-25] MEDS: SODIUM CHLORIDE 0.9% 1000 ML 1,000 ML 999 ML IV (22:18)
[2025-03-25] MEDS: MORPHINE SULF INJ 4 MG/ML VIAL 6 MG IV (22:19)
[2025-03-25 23:01] LABS: Sed Rate (ESR) 12 mm/hr (0-20)
[2025-03-25 23:02] LABS: Alanine Aminotransferase 14 U/L (10-49); Albumin, Serum 5.0 gm/dL (3.5-5.0); Albumin/Globulin Ratio 2.0 (1.2-2.2); Alkaline Phosphatase 100 U/L (46-116); Amylase 122 U/L (30-118); Anion Gap 12 (7-16); Aspartate Amino Transferase 17 U/L (0-34); BUN/Creatinine Ratio 10 Ratio (12-20); Bilirubin,Direct < 0.1 mg/dL (0.0-0.3); Bilirubin,Total 0.3 mg/dL (0.3-1.2); Blood Urea Nitrogen 10 mg/dL (9-23); C-Reactive Protein < 0.5 mg/dL (0.0-0.9); Calcium 10.2 mg/dL (8.3-10.6); Calcium (Corrected) 10.2 mg/dL (8.5-10.1); Carbon Dioxide 28.1 mMol/L (20.0-31.0); Chloride 103 mMol/L (98-107); Creatinine (Component) 1.0 mg/dL (0.6-1.3); Estimated Creatinine Clearance 88.4 mL/min (>60); Globulin 2.5 gm/dL (2.3-3.5); Glucose 98 mg/dL (74-106); Lipase 83 U/L (12-53); Magnesium 1.8 mg/dL (1.6-2.6); Osmolality,Calculated 283 (275-295); Potassium 3.7 mMol/L (3.4-5.1); Procalcitonin 0.04 ng/ml (0.0-0.49); Sodium 143 mMol/L (136-145); Total Protein 7.5 gm/dL (5.7-8.2); eGFR > 60 See Note
[2025-03-25 23:34] LABS: HCG,Qualitative Serum Negative
[2025-03-26] LABS: Basophils # (Auto) 0.1 Thou/mm3 (0.0-0.2); Basophils % (Auto) 1 % (0-2.5); Eosinophils # (Auto) 0.2 Thou/mm3 (0.0-0.5); Eosinophils % (Auto) 1 % (0-10); Hematocrit 42.7 % (36.0-46.0); Hemoglobin 15.1 g/dL (12.0-16.0); Immature Granulocytes Auto 0.11 Thou/mm3 (0.00-0.00); Lymphocytes # (Auto) 3.0 Thou/mm3 (1.0-4.8); Lymphocytes % (Auto) 27 % (10-50); Mean Corpuscular HGB Conc 35.4 g/dl (31.0-37.0); Mean Corpuscular Hemoglobin 29.6 pg (25.0-35.0); Mean Corpuscular Volume 84 fL (80-100); Monocytes # (Auto) 0.7 Thou/mm3 (0.0-0.8); Monocytes % (Auto) 6 % (0-12); Neutrophils # (Auto) 7.2 Thou/mm3 (1.8-7.7); Neutrophils % (Auto) 65 % (37-80); Nucleated Red Blood Cell # 0.00 Thou/mm3 (0.00-0.00); Nucleated Red Blood Cell % 0 /100 WBC (0); Platelet Count 360 Thou/mm3 (140-440); RDW Standard Deviation 36.2 fL (36.4-46.3); Red Blood Count 5.10 Miln/mm3 (4.00-5.20); White Blood Count 11.2 Thou/mm3 (3.6-11.0)
[2025-03-26 00:21] VITALS: BP 117/78; PULSE 95; RESP 16; TEMP 36.6; O2SAT 96
[2025-03-26 00:25] LABS: Collection Type, Urine Clean Catch
[2025-03-26 00:30] LABS: Bilirubin,Urine Negative (Negative); Blood,Urine Negative (Negative); Clarity,Urine Clear (Clear/Hazy); Color,Urine Lt-Yellow (Lt Yel-Yel); Culture Indicated,Urine Not Indicated; Glucose, Urine Negative (Negative); Ketones,Urine Negative (Negative); Leukocyte Esterase,Urine Negative (Negative); Nitrite,Urine Negative (Negative); PH,Urine 6.0 (5.0-7.0); Protein,Urine Negative (Neg - Trace); RBC,Urine 1 /hpf (0-3); Specific Gravity,Urine 1.021 (1.001-1.035); Squamous Epithelial Cell,Urine 3 /hpf (0-5); Urobilinogen,Urine Negative mg/dL (0.0-1.0); WBC,Urine 1 /hpf (0-5)
== END 2025-03-26 00:55 | disposition home or self-care (01) ==
PROVIDERS: Emergency Provider Emergency Medicine
DX: R10.9 Unspecified abdominal pain (principal)
CPT/HCPCS: 36415; 74177; 80053; 81001; 82150; 82248; 83605; 83690; 83735; 84145; 84703; 85025; 85652; 86140; 87040; 99283; A4649; J1885; J2270; J2405; J7030; Q9967